=== PATIENT | female | born 1990 | race Caucasian/White ===

== ENCOUNTER 2017-02-17 14:42 | Emergency (ER) | payer BC, MEDICAID ==
[~2017-02-17] VITALS: Ht 175.3 cm; Wt 118.0 kg
[~2017-02-17 14:42] MED LIST: PROZ20CA11
[2017-02-17 14:57] VITALS: BP 131/86; PULSE 72; RESP 16; TEMP 98.8; O2SAT 98
[2017-02-17] MEDS ORDERED: ZOLO100T PO (15:45)
[2017-02-17] MEDS ORDERED: LIDOCAINE 2%/EPINEPHrine 1:100,000 50ML MDV NERV BLOCK ONE (16:00)
[2017-02-17] MEDS ORDERED: TETANUS/DIPHTHERIA TOXOID ADULT 0.5 ML VIAL IM ONE (16:00)
--- NOTE | 2017-02-17 16:46 | PD ---
HPI . Laceration Chief Complaint: Laceration/Skin Injury Time Seen by Provider: 15:54 Travel History International Travel<30 days: No Contact w/Intl Traveler<30days: No Traveled to known affect area: No History of Present Illness HPI This patient presents with the chief complaint of a laceration to the right thumb. It was sustained on a piece of broken glass just prior to arrival. She states that there was glass in the wound that she has cleaned it and the foreign body is gone. She does not know the date of her last tetanus shot. She rates her pain 8/10. The pain is exacerbated by palpation. PFSH Past Medical History ADHD: No Cancer: No Cardiovascular Problems: No Diabetes: No Diminished Hearing: No Immunizations Current: Yes Migraines: Yes Seizures: No Thyroid Disease: No Ulcer: No ?: Unknown LMP: 3.5 WEEKS AGO : 0 Past Surgical History Appendectomy: No Cholecystectomy: No Other Surgery: No Social History Tobacco Use: No Substance Use: No (denies) Allergies-Medications (Allergen,Severity, Reaction): Coded Allergies: No Known Allergies (Verified Allergy, Severe, 02/17/17) Reported Meds & Prescriptions Reported Meds & Active Scripts Active Reported Zoloft (Sertraline HCl) 100 Mg Tab 200 Mg PO DAILY Review of Systems Except as stated in HPI: all other systems reviewed are Neg Physical Exam Narrative GENERAL: Awake and alert and in no acute distress. SKIN: Warm and dry. Laceration on the pad of the right thumb. Bleeding was not controlled on arrival. HEAD: Normocephalic/atraumatic. EYES: Pupils are equal. Extraocular movements are intact. NECK: Normal range of motion. CARDIOVASCULAR: Regular rate and rhythm. RESPIRATORY: Nonlabored respirations. MUSCULOSKELETAL: Atraumatic. NEUROLOGICAL: Nonfocal. PSYCHIATRIC: Appropriate mood and affect. Data Data Last Documented VS Vital Signs Date Time Temp Pulse Resp B/P (MAP) Pulse Ox O2 Delivery O2 Flow Rate FiO2 02/17/17 14:57 98.8 72 16 131/86 (101) 98 Orders Orders Lidocai-Epi 2%-1:100,000 Inj (Xylocaine- (02/17/17 16:00) Tetanus/Diphtheria Tox Adult (Tetanus/Di (02/17/17 16:00) MDM Medical Decision Making Medical Screen Exam Complete: Yes Emergency Medical Condition: Yes Differential Diagnosis Differential diagnosis includes but is not limited to skin laceration, muscular laceration, tendon laceration, neurovascular laceration. Narrative Course Patient presents with a laceration on the right thumb. Tetanus was updated. Wound was repaired. Procedures Procedure Narrative LACERATION LOCATION: Right thumb LENGTH: 2 cm NUMBER OF STITCHES/JAMES: 3 I initially attempted to treat her laceration placing a cotton ball soaked with lidocaine with epinephrine to control bleeding. My plan was to then used Dermabond. However, the bleeding was not controlled with the lidocaine with epinephrine. The patient was very uncooperative when I attempted to hold pressure on the wound. Therefore, the attempt at using Dermabond was aborted and the decision was made to repair the laceration with sutures. REPAIR: The area of the laceration was prepped with Betadine and sterilely draped. The laceration was infiltrated with 2% lidocaine with epi. The wound explored without evidence of foreign body, tendon injury or neurovascular injury. The wound was closed using 4-0 Prolene. This was a single layer repair. A sterile dressing was applied. The patient was advised to keep the dressing clean and dry. Patient tolerated the procedure well. Diagnosis Primary Impression: Thumb laceration Qualified Codes: S61.011A - Laceration without foreign body of right thumb without damage to nail, initial encounter Patient Instructions: Finger Laceration (ED), General Instructions Additional Instructions: Clean the wound twice daily with soap and water. Apply a thin layer of Neosporin ointment after you wash it. See your doctor in 7 days for suture removal. Seek care sooner for redness, drainage, warmth, unusual pain. Disposition: 01 DISCHARGE HOME Condition: Stable Nicky Haque MD Feb 17, 2017 16:46
== END 2017-02-17 17:10 | disposition home or self-care (01) ==
LOC: PHED 14:42 → PHEFT 17:10
DX: S61.011A Laceration without foreign body of right thumb without damage to nail, initial encounter (principal); Z23 Encounter for immunization; Z79.899 Other long term (current) drug therapy; W25.XXXA Contact with sharp glass, initial encounter
CPT/HCPCS: 12001; 90471; 90714